=== PATIENT | female | born 1950 | race African-American/Black ===

== ENCOUNTER → 2018-01-22 | Outpatient (CLI) | payer MEDICARE, BC ==
[2014-06-23 19:35] VITALS: BP 178/91
--- NOTE | 2018-01-22 15:51 | RAD ---
DATE: 03/24/2017 EXAM: MAMMO TESFAYE SCREENING BILATERAL HISTORY: Routine screening COMPARISON: 01/20/2017 This study was interpreted with the benefit of Computerized Aided Detection (CAD). Breast Density: SCATTERED The breast parenchyma shows scattered fibroglandular densities. Breast parenchyma level B. FINDINGS: 2-D and 3-D tomosynthesis imaging was performed in CC and MLO projections. There is slight architectural distortion at the 12:00 location in the right breast best seen on CC tesfaye image #34. This corresponds to the area of previous surgery. The appearance on the 2-D images is similar to that seen on the previous studies. This most likely represents scarring. No new or enlarging breast densities are seen. Benign type calcification is present in the left. No suspicious microcalcifications have developed. IMPRESSION: 1. Scarring at the 12:00 location the right breast, better demonstrated on today's 3-D images than on the previous 2-D studies. 2. No mammographic evidence of malignancy in either breast. BI-RADS CATEGORY: 2 BENIGN FINDING(S) RECOMMENDED FOLLOW-UP: 12M 12 MONTH FOLLOW-UP PQRS compliance statement: Patient information was entered into a reminder system with a target due date for the next mammogram. Mammography is a sensitive method for finding small breast cancers, but it does not detect them all and is not a substitute for careful clinical examination. A negative mammogram does not negate a clinically suspicious finding and should not result in delay in biopsying a clinically suspicious abnormality. "Our facility is accredited by the [employer] Mammography Program."
== END | disposition home or self-care (01) ==
LOC: MAMMO 12:53
PROVIDERS: ATTEND Family Medicine
DX: Z12.31 Encounter for screening mammogram for malignant neoplasm of breast (principal)
CPT/HCPCS: 77063; 77067

== ENCOUNTER → 2018-05-31 | Outpatient (CLI) | payer MEDICARE, BC ==
[2014-06-23 19:35] VITALS: BP 178/91
--- NOTE | 2018-05-31 13:05 | KCIC ---
EXAM: Dual energy x-ray absorptiometry (DEXA). HISTORY: Postmenopausal female presents for osteoporosis screening. COMPARISON: None. TECHNIQUE: Dual energy x-ray absorptiometry of the lumbar spine and left hip was performed. Calculation of bone mineral density based on standard deviations above or below the expected young adult normal value (T-score) was completed. FINDINGS: The average bone mineral density in the 1st through 4th lumbar vertebrae is 1.094 g/cmxcm, corresponding with a T-score of 0.4. The average total bone mineral density in the left hip is 0.867 g/cmxcm, corresponding with a T-score of -0.6. IMPRESSION: Normal bone mineral density. Note: Definitions established by the World Health Organization: 1. Normal: T-score is -1.0 or above. 2. Osteopenia: T-score is between -1.0 and -2.5 . 3. Osteoporosis: T-score is -2.5 or below. Electronically signed by: Ira Del Cid MD (05/31/2018 1:02 PM) [facility]
== END | disposition home or self-care (01) ==
LOC: KCIC DEXA 12:04
PROVIDERS: ATTEND Internal Medicine
DX: E28.39 Other primary ovarian failure (principal); Z78.0 Asymptomatic menopausal state
CPT/HCPCS: 77080

== ENCOUNTER → 2019-01-24 | Outpatient (CLI) | payer MEDICARE, BC ==
[2014-06-23 19:35] VITALS: BP 178/91
--- NOTE | 2019-01-25 10:06 | RAD ---
DATE: January 24, 2019 EXAM: MAMMO TESFAYE SCREENING BILATERAL HISTORY: Screening study. COMPARISON: 2010 and 2016 and 2017 This study was interpreted with the benefit of Computerized Aided Detection (CAD). FINDINGS: Breast Density: SCATTERED The breast parenchyma shows scattered fibroglandular densities. Breast parenchyma level B.. There is an area of questionable architectural distortion seen in the central aspect of the right breast seen on tesfaye image 35 in the CC projection and tesfaye image 46 in the MLO projection. This is located 4 cm from the nipple. This most likely represents normal prominent Balta's ligaments but recommend sonography of the right breast to exclude a lesion here since architectural distortion is possible. The area of involvement is 4 cm size and therefore if nothing is seen by sonography, this is considered a benign finding. No significant change in density on the mammogram is seen from previous studies as well. The left breast is stable. No clustering of pleomorphic microcalcifications are seen on either side. IMPRESSION: Question of architectural distortion of the central right breast. Recommend right breast sonography. BI-RADS CATEGORY: 0 INCOMPLETE: NEEDS ADDITIONAL IMAGING EVALUATION AND/OR PRIOR MAMMOGRAMS FOR COMPARISON. RECOMMENDED FOLLOW-UP: ADD ADDITIONAL IMAGING PQRS compliance statement: Patient information was entered into a reminder system with a target due date now for the next imaging study. Mammography is a sensitive method for finding small breast cancers, but it does not detect them all and is not a substitute for careful clinical examination. A negative mammogram does not negate a clinically suspicious finding and should not result in delay in biopsying a clinically suspicious abnormality. "Our facility is accredited by the [employer] Mammography Program." The patient's breast density may affect the ability of mammography to detect breast cancer. There are 4 categories of breast density, A, B, C and D. Breast density A means that most of the breast tissue is replaced with adipose tissue and therefore is not dense. Breast density B means that the breast tissue is mildly dense and scattered. Breast density C means that the breast tissue is heterogeneously dense. Breast density D means that the breast tissue is very dense. Breast densities especially C and D may decrease the sensitivity of mammography to detect breast cancer. Therefore, the patient may benefit from 3-D breast mammography (3D breast tomography) as a part of their screening mammogram. Insurance may or may not pay for this additional imaging. The patient's breast density based on today's mammogram is category B.
== END | disposition home or self-care (01) ==
LOC: MAMMO 13:05
PROVIDERS: ATTEND Internal Medicine
DX: Z12.31 Encounter for screening mammogram for malignant neoplasm of breast (principal); N64.89 Other specified disorders of breast
CPT/HCPCS: 77063; 77067

== ENCOUNTER → 2019-01-30 | Outpatient (CLI) | payer MEDICARE, BC ==
[2014-06-23 19:35] VITALS: BP 178/91
--- NOTE | 2019-01-30 16:59 | RAD ---
Examination: BREAST RIGHT History: Abnormal mammogram Comparison/Correlation: 01/20/2017 at 01/24/2019 screening mammographic exams Findings: Limited ultrasound imaging of the right upper quadrant half of the breast and right axilla was performed. No suspicious imaging finding is evident involving the right upper breast. No mass, fluid collection, or suspicious right axillary lymph nodes. Benign-appearing right axillary lymph note is present. Impression: BI-RADS Category 2-benign. Annual screening mammography is recommended. Electronically signed by: Landen Herman MD (01/30/2019 4:56 PM) [facility]
== END | disposition home or self-care (01) ==
LOC: US 13:32
PROVIDERS: ATTEND Internal Medicine
DX: R92.2 Inconclusive mammogram (principal)
CPT/HCPCS: 76641

== ENCOUNTER → 2020-02-27 | Outpatient (CLI) | payer MEDICARE, BC ==
[2014-06-23 19:35] VITALS: BP 178/91
--- NOTE | 2020-02-27 16:29 | RAD ---
Examination: MG BILAT SCREEN+TESFAYE History: screening mammogram / Comparison/Correlation: 01/20/2017, 01/22/2018, 01/24/2019 Technique: MLO and CC digital tomosynthesis (3D) images obtained. Radiologist reviewed these images on dedicated workstation. Findings: Breast Tissue Density B : There are scattered areas of fibroglandular density. There are no dominant masses, suspicious microcalcifications, or new architectural distortion. Right central upper breast distortion consistent with previous history of biopsy is stable. IMPRESSION: No mammographic evidence of malignancy. Recommend routine screening. BI-RADS category 1: Negative. The images were reviewed with computer-aided detection. Patient information is entered into reminder system with a target due date for the next screening [facility] mogram. Mammography is the most sensitive method for finding small breast cancers, but it does not detect the m all and is not a substitute for careful clinical examination. A negative mammogram does not negate a clinically suspicious finding and should not result in delay in biopsying a clinically suspicious a bnormality. "Our facility is accredited by the [employer] Mammography Program." Electronically signed by: Landen Herman MD (02/27/2020 4:27 PM) [facility]
== END ==
LOC: MAMMO 13:13
PROVIDERS: ATTEND Internal Medicine
DX: Z12.31 Encounter for screening mammogram for malignant neoplasm of breast (principal)
CPT/HCPCS: 77063; 77067

== ENCOUNTER → 2021-03-08 | Outpatient (CLI) | payer MEDICARE, BC ==
[2014-06-23 19:35] VITALS: BP 178/91
--- NOTE | 2021-03-08 15:44 | RAD ---
BILATERAL DIGITAL SCREENING 2-D AND 3-D MAMMOGRAM INDICATION: Routine screening. COMPARISON: Prior studies including one of 02/27/2020. Interpretation was made using CAD. FINDINGS: Breast Density: B RIGHT BREAST: Architectural distortion in the upper breast has remained stable for several years and is consistent with history of biopsy. No new mass or suspicious calcifications are seen. LEFT BREAST: No suspicious masses, calcifications or areas of architectural distortion are seen. IMPRESSION: 1. No imaging evidence of malignancy. ASSESSMENT: BI-RADS 2. Benign findings. RECOMMENDATION: Routine annual screening mammogram. The facility will notify the patient of the results via mail. Patient information will be entered int o the mammography reminder system with a target recall date for the next mammogram. A reminder letter will be generated by the facility. Electronically signed by: Hebert Pérez Jr., MD (03/08/2021 3:41 PM) [id number]
== END ==
LOC: MAMMO 13:16
PROVIDERS: ATTEND Internal Medicine
DX: Z12.31 Encounter for screening mammogram for malignant neoplasm of breast (principal)
CPT/HCPCS: 77063; 77067